=== PATIENT | female | born 1995 | race Caucasian/White ===

== ENCOUNTER 2018-09-12 04:33 | Emergency (ER) | payer MEDICAID, SELFPAY ==
[2018-09-12 04:34] VITALS: BP 122/64; PULSE 98; RESP 22; TEMP 36.4; O2SAT 100; BMI 29.9
--- NOTE | 2018-09-12 04:58 | ED.DCSUM_ITS ---
- ER Visit Summary Date of Service: 09/12/18 Chief Complaint: [] History of Present Illness: The patient is a 23 F [dental pain presents the emergency department dental pain that she is had off and on for about a week. Patient states that she woke up at 3 AM with severe pain. Patient denies any trauma to her teeth. She denies any fever. Patient has an appointment with a dentist coming up next week.] Physical Examination: [HEENT-PERRLA, EOMI. Cranial nerves II through XII gross ly intact. TMs clear. Mucous membranes moist. No adenopathy. Dentition- patient does have tenderness palpation left upper first molar. No gingival erythema or abscess noted. No facial cellulitis. Cardiovascular-regular rate and rhythm without murmur or ectopy Lungs-clear to auscultation, chest wall stable without crepitus or subcu emphysema Abdomen-normoactive bowel sounds, soft, nontender, no rebound or rigidity, no peritoneal signs. Extremities-intact ?4, normal range of motion, normal pulses, atraumatic] Test Results: [None indicated] Emergency Department Course and Treatment: [Patient was started on amoxicillin and [place]] Treatment Plan: [Patient will be treated with amoxicillin [place] and advised to follow-up with the dentist] Disposition: [Discharged home in stable condition] Impression: [Dental pain] This note was generated with [employer] dictation software. It may contain incorrect words, spelling, and punctuation that were not noted in review of the chart prior to signing ED Disposition - Plan for ED Patient: Chief Complaint: Dental Referrals: Care Physician,No Primary [Primary Care Provider] -
--- NOTE | 2018-09-12 04:58 | ED.DEP ---
ED Disposition - Plan for ED Patient: Chief Complaint: Dental Instructions: ED Tooth Pain Prescriptions: Hydrocodone Bitart/Apap 5-325 [[place] 5MG-325MG] 1 tab PO Q4H PRN PRN 2 Days #14 tab PRN Reason: Pain Amoxicillin 500 mg PO TID #30 tab Referrals: Care Physician,No Primary [Primary Care Provider] -
[2018-09-12] MEDS: AMOXICILLIN 500 MG CAPSULE PO (05:03)
[2018-09-12] MEDS: HYDROcodone Bitartrate/Apap 5/325 Tablet PO ×2 (05:03)
== END 2018-09-12 05:08 | disposition home or self-care (01) ==
PROVIDERS: Emergency Provider Emergency Medicine
DX: K08.89 Other specified disorders of teeth and supporting structures (principal); Z72.0 Tobacco use
CPT/HCPCS: 99281